=== PATIENT | male | born 1990 | race Two or more races ===

== ENCOUNTER 2021-07-26 13:48 | Emergency (ER) | payer SELFPAY ==
[~2021-07-26] VITALS: Ht 185.4 cm; Wt 117.9 kg
[2021-07-26 15:21] VITALS: BP 127/79
[2021-07-26] MEDS: LIDOCAINE 1%HCL (LOCAL ANESTH) 10 ML MDV ONE ×2 (15:58→16:17)
[2021-07-26] MEDS ORDERED: TETANUS-DIPTH-ACEL PERTUSSIS 0.5ML SYR Tdap IM ONE ×2 (16:14→16:15)
[2021-07-26] MEDS ORDERED: cefTRIAXone SOD 1,000 MG VL ONE (16:14)
[2021-07-26] MEDS ORDERED: LIDOCAINE 1% HCL (LOCAL ANESTH.) INJ 20ML MDV ID ONE (16:15)
[2021-07-26] MEDS ORDERED: cefTRIAXone SOD 1,000 MG VL IM ONE (16:15)
[2021-07-26] MEDS ORDERED: CEPH-509 PO (16:18)
[2021-07-26] MEDS ORDERED: IBUP800T27 PO (16:18)
== END 2021-07-26 16:41 | disposition home or self-care (01) ==
LOC: ER 13:48 → EDBD 13:48 → ER 16:41
DX: S62.610A Displaced fracture of proximal phalanx of right index finger, initial encounter for closed fracture (principal); S61.411A Laceration without foreign body of right hand, initial encounter; V43.52XA Car driver injured in collision with other type car in traffic accident, initial encounter; Y93.89 Activity, other specified; Y92.410 Unspecified street and highway as the place of occurrence of the external cause; Y99.8 Other external cause status
CPT/HCPCS: 12004; 29130; 71046; 73130; 90471; 90715; 96372; 99284; J0696; J2001